=== PATIENT | male | born 1975 | race Caucasian/White ===

== ENCOUNTER 2017-06-15 22:36 | Emergency (ER) | payer OTHER ==
[~2017-06-15] VITALS: Ht 180.3 cm; Wt 102.1 kg
[2017-06-15] MEDS ORDERED: ASPIR 8181 MG (22:52)
[2017-06-15] MEDS ORDERED: HYDROCODONE-AP1 EAC6 PO (23:59)
[2017-06-15] MEDS ORDERED: AUGMENTIN 875-1 EACH PO (23:59)
[2017-06-16 00:17] VITALS: BP 148/102
== END 2017-06-16 00:18 | disposition home or self-care (01) ==
LOC: M.ERS 22:36
DX: S01.111A Laceration without foreign body of right eyelid and periocular area, initial encounter (principal); I10 Essential (primary) hypertension; W54.0XXA Bitten by dog, initial encounter; Y93.89 Activity, other specified; Y92.89 Other specified places as the place of occurrence of the external cause; Y99.8 Other external cause status